=== PATIENT | male | born 1980 | race Caucasian/White ===

== ENCOUNTER 2025-09-11 09:51 | Outpatient (CLI) | payer OTHER, SELFPAY ==
--- NOTE | 2025-09-11 10:00 | CTR_ITS ---
PROCEDURE INFORMATION: Exam: CT Maxillofacial Without Contrast, Sinus Exam date and time: 09/11/2025 10:10 AM Age: 45 years old Clinical indication: Chronic sinusitis, facial pressure; Additional info: Chronic sinus issues TECHNIQUE: Imaging protocol: CT Maxillofacial without contrast. Focus on the sinuses. Radiation optimization: All CT scans at this facility use at least one of these dose optimization techniques: automated exposure control; mA and/or kV adjustment per patient size (includes targeted exams where dose is matched to clinical indication); or iterative reconstruction. COMPARISON: No relevant prior studies available. RADIATION DOSE METRICS: Total DLP (mGy-cm): 526.88 FINDINGS: Frontal sinuses: Normal. No air-fluid levels. Normal bilateral frontal recesses. Ethmoid sinuses: No air-fluid levels. Sphenoid sinuses: Normal. No air-fluid levels. Normal bilateral sphenoid sinus ostia. Maxillary sinuses: Minimal mucosal thickening superomedial bilateral maxillary sinuses, without ostiomeatal complex occlusion or significant narrowing. Nasal cavity: Unremarkable. Orbital cavities: Orbits are normal. Globes are unremarkable. Bones: Unremarkable. Soft tissues: Unremarkable. Lymph nodes: Left level 2 lymph node measuring 7 mm short axis. Right level 2 lymph node measuring 6.[address]/CT sinus wo con* [id number] IMPRESSION: Minimal maxillary sinus mucosal disease as above.
== END 2025-09-11 09:52 | disposition home or self-care (01) ==
LOC: RAD 09:55
PROVIDERS: PCP Family Medicine Geriatric Medicine; Visit Provider Family Medicine Geriatric Medicine
DX: Z01.89 Encounter for other specified special examinations (principal); J01.00 Acute maxillary sinusitis, unspecified
CPT/HCPCS: 70486